=== PATIENT | female | born 1945 | race Caucasian/White ===

== ENCOUNTER 2021-07-30 09:24 | Outpatient (CLI) | payer MEDICARE ==
[2021-07-30 10:29] LABS: Chol/HDL Ratio 2.41 %
== END 2021-07-30 09:25 | disposition home or self-care (01) ==
LOC: LAB 09:24
PROVIDERS: ATTEND Internal Medicine
DX: E11.9 Type 2 diabetes mellitus without complications (principal); E78.5 Hyperlipidemia, unspecified
CPT/HCPCS: 36415; 80061; 83036

== ENCOUNTER 2022-02-01 09:14 | Outpatient (CLI) | payer MEDICARE ==
[2022-02-01 09:58] LABS: Alanine Aminotransferase 33 units/L (7-56); Albumin 4.7 g/dL (3.9-5); BUN/Creatinine Ratio 21; Blood Urea Nitrogen 17 mg/dL (7-17); Calcium 10.8 mg/dL (8.4-10.2); Hemolysis Index 2
== END 2022-02-01 09:15 | disposition home or self-care (01) ==
LOC: LAB 09:14
PROVIDERS: ATTEND Specialist
DX: F02.80 Dementia in other diseases classified elsewhere, unspecified severity, without behavioral disturbance, psychotic disturbance, mood disturbance, and anxiety (principal); E07.9 Disorder of thyroid, unspecified
CPT/HCPCS: 36415; 80053; 82607; 83921; 84443